=== PATIENT | male | born 2000 ===

== ENCOUNTER 2024-04-02 15:02 | Emergency (ER) | payer OTHER, SELFPAY ==
[2024-04-02 15:11] VITALS: BP 119/72
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
[2024-04-02] MEDS: MOTRIN 400 MG PO (18:33)
[2024-04-02 19:10] VITALS: BP 123/71
== END 2024-04-02 19:20 | disposition home or self-care (01) ==
LOC: EMR 15:02
PROVIDERS: EMERGENCY PHYSICIAN Emergency Medicine
DX: M79.89 Other specified soft tissue disorders (principal); S70.212A Abrasion, left hip, initial encounter; S80.812A Abrasion, left lower leg, initial encounter; S80.811A Abrasion, right lower leg, initial encounter; S50.812A Abrasion of left forearm, initial encounter; S50.811A Abrasion of right forearm, initial encounter; S40.212A Abrasion of left shoulder, initial encounter; V28.09XA Other motorcycle driver injured in noncollision transport accident in nontraffic accident, initial encounter
CPT/HCPCS: 99284; 73610; 93971

== ENCOUNTER 2024-10-05 23:01 | Emergency (ER) | payer OTHER, SELFPAY ==
[2024-10-05 23:02] VITALS: BMI 26.5
[2024-10-05 23:03] VITALS: BP 122/65
[2024-10-05 23:08] VITALS: BP 122/65
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
[2024-10-05 23:27] LABS: Glucose - Point of Care 91 mg/dl (70-99)
[2024-10-06 00:53] VITALS: BP 116/78
[2024-10-06 01:00] VITALS: BP 121/74
[2024-10-06 01:04] LABS: % Basophils 0.5 % (0-2); % Eosinophils 1.2 % (0-6); % Immature Granulocytes 0.4 % (0-0.5); % Monocytes 6.3 % (1.7-9.3); % Neutrophils 71.6 % (42.2-75.2); Absolute Basophils 0.1 10^3/uL (0-0.2); Absolute Eosinophils 0.1 10^3/uL (0-0.7); Absolute Lymphocytes 1.9 10^3/uL (1.2-3.4); Absolute Monocytes 0.6 10^3/uL (0.1-0.6); Absolute Neutrophils 6.7 10^3/uL (1.4-6.5); Hematocrit 40.4 % (39.0-52.0); Hemoglobin 13.8 g/dL (13.0-18.0); Mean Corp Hgb Conc. 34.2 g/dL (33.0-37.0); Mean Corpuscular Hgb 29.4 pg (27.0-31.0); Mean Corpuscular Volume 86.1 fL (80.0-94.0); Mean Platelet Volume 10.7 fL (7.4-10.4); Nucleated Red Blood Cells % 0 % (-); Platelet Count 217 10^3/uL (130-400); Red Blood Cell Count 4.69 10^6/uL (4.70-6.10); Red Cell Dist. Width 12.5 % (11.5-14.5); White Blood Cell Count 9.3 10^3/uL (4.8-10.8)
[2024-10-06 01:52] LABS: Acetaminophen < 10 ug/ml (10-30); Alcohol 100 mg/dl; Blood Urea Nitrogen 15 mg/dl (9-20); Calcium 8.7 mg/dl (8.4-10.2); Carbon Dioxide 22 mmol/L (22-30); Chloride 105 mmol/L (98-107); Estimated Creatinine Clearance 103 ml/min; Glucose 95 mg/dl (70-99); Salicylate < 1.0 mg/dl (2.0-20.0); Sodium 141 mmol/L (135-145); eGFR > 60.00
[2024-10-06 02:00] VITALS: BP 114/65
[2024-10-06 02:14] LABS: Amphetamines Negative (Negative); Barbiturates Negative (Negative); Benzodiazepines Negative (Negative); Buprenorphine Negative (Negative); Cocaine Negative (Negative); Marijuana Positive (Negative); Methadone Negative (Negative); Methamphetamines Negative (Negative); Opiates Negative (Negative); Phencyclidine Negative (Negative); Tricyclic Antidepressants Negative (Negative)
[2024-10-06 09:30] VITALS: BP 147/84
== END 2024-10-06 10:45 ==
LOC: EMR 23:01
PROVIDERS: EMERGENCY PHYSICIAN Emergency Medicine; FAMILY PHYSICIAN Family Medicine
DX: R45.6 Violent behavior (principal); F10.129 Alcohol abuse with intoxication, unspecified; S00.83XA Contusion of other part of head, initial encounter; W22.8XXA Striking against or struck by other objects, initial encounter; F31.9 Bipolar disorder, unspecified
CPT/HCPCS: 99285; 70450; 80048; 80143; 80179; 80306; 82077; 82962; 85025

== ENCOUNTER 2024-12-09 21:06 | Emergency (ER) | payer SELFPAY ==
[2024-12-09 21:29] VITALS: BP 105/70
[2024-12-09 23:41] VITALS: BMI 34.5
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
[2024-12-10] MEDS: TORADOL 30 MG IM (00:10)
== END 2024-12-10 00:32 | disposition home or self-care (01) ==
LOC: EMR 21:06
PROVIDERS: EMERGENCY PHYSICIAN Student in an Organized Health Care Education/Training Program; FAMILY PHYSICIAN Student in an Organized Health Care Education/Training Program
DX: S82.891A Other fracture of right lower leg, initial encounter for closed fracture (principal); V29.888A Rider (driver) (passenger) of other motorcycle injured in other specified transport accidents, initial encounter
CPT/HCPCS: 96372; 99284; 73590; 73610

== ENCOUNTER → 2024-12-17 07:23 | Outpatient (REF) | payer OTHER, SELFPAY | LOC: MRI 07:23 | PROVIDERS: ATTENDING PHYSICIAN Student in an Organized Health Care Education/Training Program; FAMILY PHYSICIAN Family Medicine | DX: S82.891A Other fracture of right lower leg, initial encounter for closed fracture (principal) | CPT/HCPCS: 73721 ==

== ENCOUNTER 2025-02-10 19:06 | Outpatient (RCR) | payer OTHER, SELFPAY | END 2025-02-10 23:59 | disposition home or self-care (01) | LOC: RPT 19:06 | PROVIDERS: ATTENDING PHYSICIAN Student in an Organized Health Care Education/Training Program; FAMILY PHYSICIAN Family Medicine | DX: S82.891D Other fracture of right lower leg, subsequent encounter for closed fracture with routine healing (principal); Z73.6 Limitation of activities due to disability; R26.2 Difficulty in walking, not elsewhere classified; R26.89 Other abnormalities of gait and mobility; M62.81 Muscle weakness (generalized); V23.49XD Other motorcycle driver injured in collision with car, pick-up truck or van in traffic accident, subsequent encounter | CPT/HCPCS: 97110; 97112; 97161; 97530 ==

== ENCOUNTER 2025-07-03 11:13 | Emergency (ER) | payer OTHER, SELFPAY ==
[2025-07-03 11:33] VITALS: BP 131/85
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
--- NOTE | 2025-07-03 14:44 | W.PN.UPDATE ---
Update Note
Progress Note Update
Psychiatric evaluation dictated.
Patient is acutely psychotic, has shown aggressive behavior towards his brother.
I will approve the 302 petition.
[2025-07-03 19:39] VITALS: BP 128/75
== END 2025-07-03 19:42 ==
LOC: EMR 11:13
PROVIDERS: EMERGENCY PHYSICIAN Emergency Medicine; OTHER PHYSICIAN Psychiatry & Neurology Psychiatry
DX: F20.3 Undifferentiated schizophrenia (principal); F29 Unspecified psychosis not due to a substance or known physiological condition
CPT/HCPCS: 99285; 80306